=== PATIENT | female | born 1950 | race Caucasian/White ===

== ENCOUNTER 2016-07-31 15:11 | Emergency (ER) | payer MEDICARE, SELFPAY ==
[~2016-07-31 15:11] MED LIST: ADULT LOW DOSE81 MG PO; AMLODIPINE BESYL5 MG PO; ASPIR-LOW81 MG PO; ASPIRIN CHEWABL81 MG PO; B-121000 MCG PO; COREG 12.5MG12.5 MG PO; COREG 3.125M3.125 MG PO; DEPAKOTE ER500 MG PO; EFFEXOR XR 75 M75 MG PO; ELIQUIS5 MG PO; GLUCOPHAGE 500500 MG PO; GLUCOPHAGE1000 MG PO; HYDROCHLOROTHIA25 MG PO; IRON325 M1 PO; LASIX40 MG PO; LISINOPRIL20 MG PO; LORTAB 7.5-3251 EACH PO; MELOXICAM15 MG PO; NEURONTIN600 MG PO; PLAVIX 75 MG TA75 MG PO; PRILOSEC OTC20 MG PO; PROZAC20 MG PO; REMERON15 MG PO; TESSALON PERLE100 MG PO; VALACYCLOVIR500 MG PO; ZESTRIL20 MG PO
[2016-07-31 17:01] LABS: HEMOGLOBIN 12.9 gm/dl (12.3-15.3); RED BLOOD COUNT 4.49 M/UL (4.00-5.10); WHITE BLOOD COUNT 4.1 K/UL (4.5-11.0)
[2016-07-31 17:20] LABS: BUN/CREATININE RATIO 9 (0-10)
[2016-12-06] MEDS ORDERED: CATAPRES 0.1MG0.1 MG PO ×2 (09:23→09:24)
[2016-12-06] MEDS ORDERED: SPIRONOLACTONE25 MG PO (09:24)
[2016-12-06] MEDS ORDERED: VITAMIN B-1000 MCG/M IM (09:25)
== END 2016-07-31 21:05 | disposition home or self-care (01) ==
LOC: ER1 15:11
PROVIDERS: Physician Assistant
DX: I11.0 Hypertensive heart disease with heart failure (principal); I50.9 Heart failure, unspecified; I48.2 Chronic atrial fibrillation; R10.31 Right lower quadrant pain; R10.32 Left lower quadrant pain; E11.9 Type 2 diabetes mellitus without complications; Z90.49 Acquired absence of other specified parts of digestive tract; Z79.01 Long term (current) use of anticoagulants; Z79.899 Other long term (current) drug therapy
CPT/HCPCS: 36415; 71020; 80053; 81001; 82550; 82553; 83690; 83874; 83880; 84484; 85025; 87086; 93005; 96374; 96375; 99284; J1940; J2405

== ENCOUNTER 2016-08-21 12:40 | Emergency (ER) | payer MEDICARE, SELFPAY ==
[2016-08-21 15:31] LABS: RED BLOOD COUNT 4.19 M/UL (4.00-5.10); WHITE BLOOD COUNT 5.3 K/UL (4.5-11.0)
[2016-08-21 16:10] LABS: BUN/CREATININE RATIO 9 (0-10)
[2016-12-06] MEDS ORDERED: CATAPRES 0.1MG0.1 MG PO ×2 (09:23→09:24)
[2016-12-06] MEDS ORDERED: SPIRONOLACTONE25 MG PO (09:24)
[2016-12-06] MEDS ORDERED: VITAMIN B-1000 MCG/M IM (09:25)
== END 2016-08-21 17:30 | disposition home or self-care (01) ==
LOC: ER1 12:40
PROVIDERS: Preventive Medicine Occupational Medicine
DX: I10 Essential (primary) hypertension (principal); I25.10 Atherosclerotic heart disease of native coronary artery without angina pectoris; G89.29 Other chronic pain; E11.9 Type 2 diabetes mellitus without complications
CPT/HCPCS: 36415; 74022; 80053; 82150; 83690; 85025; 96374; 99284; J2405

== ENCOUNTER 2020-07-08 12:09 | Emergency (ER) | payer MEDICARE, OTHER ==
[~2020-07-08 12:09] MED LIST changes: +CATAPRES 0.1MG0.1 MG PO; -COREG 3.125M3.125 MG PO; +FERROUS SULFAT325 M2 PO; +K-DUR TAB 10 M10 MEQ PO; +LEVAQUIN500 MG PO; +NEURONTIN 300300 MG PO; +NEURONTIN300 MG PO; -NEURONTIN600 MG PO; +NORCO 5-325 TA1 EACH PO; +ONDANSETRON ODT4 MG PO; +SPIRONOLACTONE25 MG PO; +VITAMIN B-1000 MCG/M IM; +VITAMIN D5000 UNIT PO
[2020-07-08 13:32] LABS: HEMOGLOBIN 7.5 gm/dl (12.3-15.3); RED BLOOD COUNT 2.7 M/UL (4.00-5.10); WHITE BLOOD COUNT 5.2 K/UL (4.5-11.0)
== END 2020-07-08 22:20 | disposition short-term general hospital (02) ==
LOC: ER1 12:09
PROVIDERS: Physician Assistant Medical
DX: J18.9 Pneumonia, unspecified organism (principal); K92.2 Gastrointestinal hemorrhage, unspecified; Z20.822 Contact with and (suspected) exposure to COVID-19; I50.9 Heart failure, unspecified; I48.91 Unspecified atrial fibrillation; K21.9 Gastro-esophageal reflux disease without esophagitis; Z90.49 Acquired absence of other specified parts of digestive tract; Z90.710 Acquired absence of both cervix and uterus; Z79.01 Long term (current) use of anticoagulants
CPT/HCPCS: 51701; 71045; 80053; 81001; 82270; 82550; 82553; 83605; 83690; 83874; 83880; 84484; 85025; 86850; 86900; 86901; 87040; 93005; 96374; 96375; 99285; C9113; J0696; J2405; U0002